=== PATIENT | female | born 1955 | race African-American/Black ===

== ENCOUNTER 2018-05-28 15:32 | Inpatient (IN) | payer MEDICARE, OTHER ==
[~2018-05-28] VITALS: Ht 160 cm; Wt 51.7 kg
[~2018-05-28 15:32] MED LIST: AMLO10TA80 PO; LOPHC2 MT; LOSA1TAB40 MT
[2018-05-28 16:00] VITALS: BP 141/71
[2018-05-28] MEDS ORDERED: MAGNESIUM/ALUMINUM HYDROXIDE/SIMETHICONE 30ML UDC PO PRN ×2 (16:45→17:30)
[2018-05-28] MEDS ORDERED: NA PHOS,M-B/NA PHOS,DI-BA ENEMA 118ML PR PRN ×2 (16:45→17:30)
[2018-05-28] MEDS ORDERED: DOCUSATE SODIUM 100MG CAPSULE PO PRN ×2 (16:45→17:30)
[2018-05-28] MEDS ORDERED: GUAIFENESIN 200MG/10ML SUGAR FREE UDC PO PRN ×2 (16:45→17:30)
[2018-05-28] MEDS ORDERED: ONDANSETRON 4MG ODT PO PRN (16:45)
[2018-05-28] MEDS ORDERED: ACETAMINOPHEN 650MG/20.3ML UDC PO PRN (16:45)
[2018-05-28] MEDS ORDERED: CLONIDINE 0.1MG TABLET PO PRN ×2 (16:45→17:30)
[2018-05-28] MEDS ORDERED: ONDANSETRON HCL 4MG/2ML VIAL IV PRN ×2 (16:45→17:30)
[2018-05-28] MEDS ORDERED: DIPHENHYDRAMINE 25MG CAPSULE PO PRN (16:45)
[2018-05-28] MEDS ORDERED: ACETAMINOPHEN 650MG SUPP PR PRN ×2 (16:45→17:30)
[2018-05-28] MEDS ORDERED: IPRATROPIUM/ALBUTEROL 0.5-3(2.5)MG/3ML NEB HHN PRN (16:45)
[2018-05-28] MEDS ORDERED: ACETAMINOPHEN 325MG TABLET PO PRN ×2 (16:45→17:30)
[2018-05-28] MEDS ORDERED: IPRATROPIUM/ALBUTEROL 0.5-3(2.5)MG/3ML NEB INH PRN (17:30)
[2018-05-28] MEDS ORDERED: ACETAMINOPHEN 650MG/20.3ML UDC GT PRN (17:30)
[2018-05-28] MEDS ORDERED: AMLODIPINE 5MG TABLET PO NR (17:30)
[2018-05-28] MEDS ORDERED: HYDROCODONE/ACETAMINOPHEN 5/325MG TABLET PO PRN ×2 (17:30)
[2018-05-28] MEDS ORDERED: DIPHENHYDRAMINE 50MG/ML VIAL IV PRN (17:30)
[2018-05-28] MEDS ORDERED: LORAZEPAM 2MG/ML CPJ IM PRN (17:45)
[2018-05-28] MEDS: ENOXAPARIN 40MG/0.4ML SYR SUBCUT SCH (18:11)
[2018-05-28 19:59] VITALS: BP_SYST 135; BP_SYST 143; BP_DIAS 52; BP_DIAS 74
[2018-05-28] MEDS: DEXT 5%/0.45% NACL KCL 20MEQ/L 1,000 ML IV SCH (20:59)
[2018-05-28] MEDS ORDERED: AMLODIPINE 5MG TABLET PO SCH (21:00)
[2018-05-28] MEDS: NITROGLYCERIN OINT 1GM/INCH UDPKT TD SCH (21:01)
[2018-05-28] MEDS: LOSARTAN POTASSIUM 25 MG TABLET PO SCH (21:01)
[2018-05-28] MEDS ORDERED: SODIUM CHLORIDE 0.9% INJ 3ML FLUSH IVF SCH ×2 (22:00)
[2018-05-28] MEDS: METOPROLOL TARTRATE 25MG TABLET PO SCH (22:20)
[2018-05-28] MEDS: SODIUM CHLORIDE 0.9% INJ 3ML FLUSH IVF SCH (22:39)
[2018-05-29] MEDS: NITROGLYCERIN OINT 1GM/INCH UDPKT TD SCH ×6 (00:43→20:14)
[2018-05-29] MEDS: SODIUM CHLORIDE 0.9% INJ 3ML FLUSH IVF SCH ×3 (05:43→21:34)
[2018-05-29] MEDS: DEXT 5%/0.45% NACL KCL 20MEQ/L 1,000 ML IV SCH ×2 (05:43→23:01)
[2018-05-29 07:20] LABS: BASOPHILS % 0.5 % (0.0-2.0); EOSINOPHILS % 1.5 % (0.0-5.0); HEMATOCRIT. 25.9 % (36.0-48.0); HEMOGLOBIN. 8.6 g/dL (12.0-16.0); LYMPHOCYTES % 13.2 % (20.0-50.0); MEAN CORPUSCULAR HEMOGLOBIN 24.4 pg (28.0-32.0); MEAN CORPUSCULAR VOLUME 73.3 fL (81.0-99.0); MEAN PLATELET VOLUME 7.8 fl (7.4-10.4); MONOCYTES % 13.3 % (2.0-8.0); NEUTROPHILS % 71.5 % (40.0-76.0); PLATELET 574 x1000/uL (130-400); RED BLOOD CELL COUNT 3.54 mill/uL (4.2-5.4); RED CELL DISTRIBUTION WIDTH 29.9 % (11.6-14.6)
[2018-05-29 07:30] VITALS: BP 150/70
[2018-05-29 08:02] LABS: CHLORIDE 97 mEq/L (98-107)
[2018-05-29 08:19] LABS: LDL CHOLESTEROL 67 mg/dL (5-100)
[2018-05-29 08:21] LABS: HDL CHOLESTEROL 33 mg/dL (40-59)
[2018-05-29] MEDS: PANTOPRAZOLE SODIUM 40 MG/VIAL IV SCH (09:16)
[2018-05-29] MEDS: AMLODIPINE 5MG TABLET PO SCH (09:16)
[2018-05-29] MEDS: LOSARTAN POTASSIUM 25 MG TABLET PO SCH ×2 (09:17→20:14)
[2018-05-29] MEDS: METOPROLOL TARTRATE 25MG TABLET PO SCH ×2 (09:17→21:22)
[2018-05-29] MEDS: NICOTINE 21MG PATCH TD SCH (09:18)
[2018-05-29] MEDS: CEFTRIAXONE 2 G in DEXTROSE 5% WATER 50 ML IV SCH (13:27)
[2018-05-29] MEDS: ENOXAPARIN 40MG/0.4ML SYR SUBCUT SCH (16:24)
[2018-05-29 20:00] VITALS: BP 142/74
[2018-05-30] MEDS: NITROGLYCERIN OINT 1GM/INCH UDPKT TD SCH ×6 (00:05→20:42)
[2018-05-30] MEDS: SODIUM CHLORIDE 0.9% INJ 3ML FLUSH IVF SCH ×3 (05:34→22:20)
[2018-05-30 08:00] VITALS: BP 135/73
[2018-05-30] MEDS: NICOTINE 21MG PATCH TD SCH (08:01)
[2018-05-30] MEDS: PANTOPRAZOLE SODIUM 40 MG/VIAL IV SCH (08:01)
[2018-05-30] MEDS: AMLODIPINE 5MG TABLET PO SCH (08:02)
[2018-05-30] MEDS: METOPROLOL TARTRATE 25MG TABLET PO SCH ×2 (08:02→20:42)
[2018-05-30] MEDS: LOSARTAN POTASSIUM 25 MG TABLET PO SCH ×2 (08:02→22:20)
[2018-05-30 10:43] VITALS: BP 130/65
[2018-05-30] MEDS: DEXT 5%/0.45% NACL KCL 20MEQ/L 1,000 ML IV SCH ×2 (11:49→22:19)
[2018-05-30] MEDS: CEFTRIAXONE 2 G in DEXTROSE 5% WATER 50 ML IV SCH (11:49)
[2018-05-30] MEDS: ENOXAPARIN 40MG/0.4ML SYR SUBCUT SCH (16:43)
[2018-05-30 20:00] VITALS: BP 138/70
[2018-05-30 21:00] VITALS: BP 138/70
[2018-05-31] MEDS: NITROGLYCERIN OINT 1GM/INCH UDPKT TD SCH ×6 (00:08→20:15)
[2018-05-31] MEDS: SODIUM CHLORIDE 0.9% INJ 3ML FLUSH IVF SCH ×3 (06:33→22:08)
[2018-05-31 08:00] VITALS: BP 137/72
[2018-05-31] MEDS: LOSARTAN POTASSIUM 25 MG TABLET PO SCH ×2 (09:01→20:15)
[2018-05-31] MEDS: PANTOPRAZOLE SODIUM 40 MG/VIAL IV SCH (09:02)
[2018-05-31] MEDS: METOPROLOL TARTRATE 25MG TABLET PO SCH ×2 (09:02→20:15)
[2018-05-31] MEDS: NICOTINE 21MG PATCH TD SCH (09:02)
[2018-05-31] MEDS: AMLODIPINE 5MG TABLET PO SCH (09:02)
[2018-05-31] MEDS: DEXT 5%/0.45% NACL KCL 20MEQ/L 1,000 ML IV SCH ×2 (09:03→22:09)
[2018-05-31] MEDS: ENOXAPARIN 40MG/0.4ML SYR SUBCUT SCH (17:00)
[2018-05-31 20:00] VITALS: BP 135/71
[2018-06-01] MEDS: NITROGLYCERIN OINT 1GM/INCH UDPKT TD SCH ×7 (03:46→23:48)
[2018-06-01] MEDS: DEXT 5%/0.45% NACL KCL 20MEQ/L 1,000 ML IV SCH ×3 (03:48→23:48)
[2018-06-01] MEDS: SODIUM CHLORIDE 0.9% INJ 3ML FLUSH IVF SCH ×3 (05:08→23:06)
[2018-06-01 08:00] VITALS: BP 134/65
[2018-06-01] MEDS: NICOTINE 21MG PATCH TD SCH (08:53)
[2018-06-01] MEDS: PANTOPRAZOLE SODIUM 40 MG/VIAL IV SCH (08:53)
[2018-06-01] MEDS: AMLODIPINE 5MG TABLET PO SCH (08:53)
[2018-06-01] MEDS: LOSARTAN POTASSIUM 25 MG TABLET PO SCH ×2 (08:54→20:33)
[2018-06-01] MEDS: METOPROLOL TARTRATE 25MG TABLET PO SCH ×2 (08:55→20:33)
[2018-06-01] MEDS: ENOXAPARIN 40MG/0.4ML SYR SUBCUT SCH (17:24)
[2018-06-01 20:00] VITALS: BP 139/60
[2018-06-02] MEDS: DEXT 5%/0.45% NACL KCL 20MEQ/L 1,000 ML IV SCH ×3 (02:21→21:46)
[2018-06-02] MEDS: NITROGLYCERIN OINT 1GM/INCH UDPKT TD SCH ×6 (03:57→23:59)
[2018-06-02] MEDS: SODIUM CHLORIDE 0.9% INJ 3ML FLUSH IVF SCH ×3 (05:15→21:48)
[2018-06-02 08:00] VITALS: BP 141/75
[2018-06-02] MEDS: NICOTINE 21MG PATCH TD SCH (09:03)
[2018-06-02] MEDS: PANTOPRAZOLE SODIUM 40 MG/VIAL IV SCH (09:03)
[2018-06-02] MEDS: LOSARTAN POTASSIUM 25 MG TABLET PO SCH ×2 (09:03→21:47)
[2018-06-02] MEDS: FERROUS SULFATE 325MG TABLET PO SCH ×2 (09:03→16:20)
[2018-06-02] MEDS: METOPROLOL TARTRATE 25MG TABLET PO SCH ×2 (09:04→23:56)
[2018-06-02] MEDS: AMLODIPINE 5MG TABLET PO SCH (09:04)
[2018-06-02] MEDS: ENOXAPARIN 40MG/0.4ML SYR SUBCUT SCH (16:30)
[2018-06-02 20:00] VITALS: BP 143/73
[2018-06-03] MEDS: NITROGLYCERIN OINT 1GM/INCH UDPKT TD SCH ×5 (04:38→20:41)
[2018-06-03] MEDS: DEXT 5%/0.45% NACL KCL 20MEQ/L 1,000 ML IV SCH (05:29)
[2018-06-03] MEDS: SODIUM CHLORIDE 0.9% INJ 3ML FLUSH IVF SCH ×3 (05:29→22:00)
[2018-06-03 07:00] VITALS: BP 142/69
[2018-06-03] MEDS: FAMOTIDINE 20MG TABLET PO SCH ×2 (08:42→20:41)
[2018-06-03] MEDS: METOPROLOL TARTRATE 25MG TABLET PO SCH ×2 (08:42→21:00)
[2018-06-03] MEDS: AMLODIPINE 5MG TABLET PO SCH (08:42)
[2018-06-03] MEDS: LOSARTAN POTASSIUM 25 MG TABLET PO SCH ×2 (08:42→22:00)
[2018-06-03] MEDS: FERROUS SULFATE 325MG TABLET PO SCH ×2 (08:42→17:00)
[2018-06-03] MEDS: NICOTINE 21MG PATCH TD SCH (08:43)
[2018-06-03 12:47] VITALS: BP 155/77
[2018-06-03 15:55] VITALS: BP 120/54
[2018-06-03] MEDS: ENOXAPARIN 40MG/0.4ML SYR SUBCUT SCH (17:01)
[2018-06-03 20:00] VITALS: BP 120/58
[2018-06-04] MEDS: NITROGLYCERIN OINT 1GM/INCH UDPKT TD SCH ×6 (00:09→21:25)
[2018-06-04] MEDS: SODIUM CHLORIDE 0.9% INJ 3ML FLUSH IVF SCH ×3 (06:00→21:25)
[2018-06-04 08:00] VITALS: BP 133/68
[2018-06-04] MEDS: NICOTINE 21MG PATCH TD SCH (08:24)
[2018-06-04] MEDS: METOPROLOL TARTRATE 25MG TABLET PO SCH ×2 (08:24→21:00)
[2018-06-04] MEDS: LOSARTAN POTASSIUM 25 MG TABLET PO SCH ×2 (08:24→21:25)
[2018-06-04] MEDS: FERROUS SULFATE 325MG TABLET PO SCH ×2 (08:24→17:10)
[2018-06-04] MEDS: FAMOTIDINE 20MG TABLET PO SCH ×2 (08:24→21:25)
[2018-06-04] MEDS: AMLODIPINE 5MG TABLET PO SCH (08:25)
[2018-06-04] MEDS: ENOXAPARIN 40MG/0.4ML SYR SUBCUT SCH (17:10)
[2018-06-04 20:00] VITALS: BP 143/67
[2018-06-05] MEDS: NITROGLYCERIN OINT 1GM/INCH UDPKT TD SCH ×3 (01:04→08:56)
[2018-06-05] MEDS: SODIUM CHLORIDE 0.9% INJ 3ML FLUSH IVF SCH ×2 (05:24→14:00)
[2018-06-05 08:00] VITALS: BP 132/66
[2018-06-05] MEDS: FERROUS SULFATE 325MG TABLET PO SCH (08:55)
[2018-06-05] MEDS: AMLODIPINE 5MG TABLET PO SCH (08:55)
[2018-06-05] MEDS: LOSARTAN POTASSIUM 25 MG TABLET PO SCH (08:55)
[2018-06-05] MEDS: NICOTINE 21MG PATCH TD SCH (08:56)
[2018-06-05] MEDS: FAMOTIDINE 20MG TABLET PO SCH (08:56)
[2018-06-05] MEDS: METOPROLOL TARTRATE 25MG TABLET PO SCH (08:56)
[2018-06-05 09:51] VITALS: BP 132/66
== END 2018-06-05 17:25 | disposition home or self-care (01) | DRG 947 ==
PROVIDERS: ADMIT Psychiatry & Neurology Neurology; ATTEND Family Medicine
DX: R53.81 Other malaise (principal); J96.00 Acute respiratory failure, unspecified whether with hypoxia or hypercapnia; J93.9 Pneumothorax, unspecified; C20 Malignant neoplasm of rectum; D62 Acute posthemorrhagic anemia; E44.0 Moderate protein-calorie malnutrition; I31.3 Pericardial effusion (noninflammatory); J98.11 Atelectasis; D50.9 Iron deficiency anemia, unspecified; F17.210 Nicotine dependence, cigarettes, uncomplicated; R00.0 Tachycardia, unspecified; F29 Unspecified psychosis not due to a substance or known physiological condition; J43.8 Other emphysema; G62.9 Polyneuropathy, unspecified; M19.90 Unspecified osteoarthritis, unspecified site; I11.9 Hypertensive heart disease without heart failure; Z85.048 Personal history of other malignant neoplasm of rectum, rectosigmoid junction, and anus; Z90.49 Acquired absence of other specified parts of digestive tract; Z71.6 Tobacco abuse counseling; Z22.322 Carrier or suspected carrier of Methicillin resistant Staphylococcus aureus; Z68.20 Body mass index [BMI] 20.0-20.9, adult
CPT/HCPCS: 36415; 80053; 80061; 82962; 85025; 93970; 97110; 97112; 97116; 97162; 97166; 97530; 97535; C9113; J0696; J1650; J7060

== ENCOUNTER 2020-05-12 11:36 | Inpatient (IN) | payer MEDICARE, OTHER, MEDICAID ==
[~2020-05-12] VITALS: Ht 162.6 cm; Wt 60.8 kg
[2020-05-12] MEDS ORDERED: KETOROLAC 30MG/ML VIAL IV STA (12:15)
[2020-05-12] MEDS ORDERED: ONDANSETRON HCL 4MG/2ML INJ IV STA ×2 (12:15→14:36)
[2020-05-12] MEDS ORDERED: MAGNESIUM/ALUMINUM HYDROXIDE/SIMETHICONE 30ML UDC PO STA (12:15)
[2020-05-12] MEDS ORDERED: SODIUM CHLORIDE 0.9% 1,000 ML IV ONE (12:15)
[2020-05-12 13:34] LABS: HEMATOCRIT. 30.2 % (36.0-48.0); HEMOGLOBIN. 9.9 g/dL (12.0-16.0); MEAN CORPUSCULAR HEMOGLOBIN 28.4 pg (28.0-32.0); MEAN CORPUSCULAR VOLUME 86.9 fL (81.0-99.0); MEAN PLATELET VOLUME 7.8 fl (7.4-10.4); PLATELET 514 x1000/uL (130-400); RED BLOOD CELL COUNT 3.47 mill/uL (4.2-5.4); RED CELL DISTRIBUTION WIDTH 14.1 % (11.6-14.6)
[2020-05-12 13:41] LABS: CHLORIDE 106 mEq/L (98-107)
[2020-05-12 13:44] LABS: PROTHROMBIN TIME 10.8 sec (9.6-11.0)
[2020-05-12 14:08] LABS: PLATELET ESTIMATE INCREASED
[2020-05-12] MEDS ORDERED: MORPHINE SULFATE 4 MG/ML CPJ (NOT FOR IM USE) IV STA (14:36)
[2020-05-12 18:28] VITALS: BP 120/75
[2020-05-12 20:00] VITALS: BP 160/77
[2020-05-12] MEDS ORDERED: MORPHINE SULFATE 2 MG/ML CPJ (NOT FOR IM USE) IV PRN (20:15)
[2020-05-12] MEDS ORDERED: ONDANSETRON HCL 4MG/2ML INJ IV PRN (20:15)
[2020-05-12] MEDS: DEXT 5%/0.9% NACL 1,000 ML IV SCH (22:40)
[2020-05-12] MEDS: ENALAPRIL 1.25 MG in DEXTROSE 5% WATER 49 ML IV PRN (23:14)
[2020-05-13] VITALS: BP 130/61
[2020-05-13] MEDS ORDERED: FURO40TA5 PO (01:19)
[2020-05-13] MEDS ORDERED: LISI-186 PO (01:19)
[2020-05-13 04:00] VITALS: BP 137/60
[2020-05-13 05:45] LABS: BASOPHILS % 0.6 % (0.0-2.0); CHLORIDE 110 mEq/L (98-107); EOSINOPHILS % 1.8 % (0.0-5.0); HEMATOCRIT. 23.8 % (36.0-48.0); HEMOGLOBIN. 7.7 g/dL (12.0-16.0); MEAN CORPUSCULAR HEMOGLOBIN 28.2 pg (28.0-32.0); MEAN CORPUSCULAR VOLUME 87.1 fL (81.0-99.0); MEAN PLATELET VOLUME 7.9 fl (7.4-10.4); NEUTROPHILS % 77.6 % (40.0-76.0); PLATELET 456 x1000/uL (130-400); RED BLOOD CELL COUNT 2.74 mill/uL (4.2-5.4); RED CELL DISTRIBUTION WIDTH 14.2 % (11.6-14.6)
[2020-05-13] MEDS: DEXT 5%/0.9% NACL 1,000 ML IV SCH ×2 (07:02→18:02)
[2020-05-13 08:00] VITALS: BP 151/68
[2020-05-13] MEDS ORDERED: DIATR MEGLU/DIATRIZOATE SOLN 120ML ONE (11:31)
[2020-05-13 12:00] VITALS: BP 184/78
[2020-05-13] MEDS: ENALAPRIL 1.25 MG in DEXTROSE 5% WATER 49 ML IV PRN (14:07)
[2020-05-13 16:00] VITALS: BP 175/79
[2020-05-13 20:00] VITALS: BP 113/77
[2020-05-14] VITALS: BP 152/72
[2020-05-14 04:00] VITALS: BP 161/84
[2020-05-14] MEDS: DEXT 5%/0.9% NACL 1,000 ML IV SCH ×2 (04:27→14:03)
[2020-05-14] MEDS: ENALAPRIL 1.25 MG in DEXTROSE 5% WATER 49 ML IV PRN ×3 (05:33→19:43)
[2020-05-14 08:00] VITALS: BP 167/77
[2020-05-14 12:00] VITALS: BP 152/68
[2020-05-14 16:00] VITALS: BP 144/67
[2020-05-14 20:00] VITALS: BP 180/84
[2020-05-14] MEDS: FUROSEMIDE 40MG TABLET PO SCH (22:10)
[2020-05-14] MEDS: LISINOPRIL 5MG TABLET PO SCH (22:10)
[2020-05-15] VITALS: BP 173/84
[2020-05-15] MEDS: DEXT 5%/0.9% NACL 1,000 ML IV SCH ×2 (00:32→10:30)
[2020-05-15] MEDS ORDERED: CLONIDINE 0.1MG TABLET PO PRN (00:45)
[2020-05-15 04:00] VITALS: BP 147/81
[2020-05-15 08:00] VITALS: BP 142/73
[2020-05-15] MEDS: FUROSEMIDE 40MG TABLET PO SCH (08:57)
[2020-05-15] MEDS: LISINOPRIL 5MG TABLET PO SCH (08:57)
[2020-05-15 10:34] LABS: BASOPHILS % 0.3 % (0.0-2.0); EOSINOPHILS % 1.6 % (0.0-5.0); HEMATOCRIT. 26.5 % (36.0-48.0); HEMOGLOBIN. 8.7 g/dL (12.0-16.0); LYMPHOCYTES % 8.8 % (20.0-50.0); MEAN CORPUSCULAR HEMOGLOBIN 28.3 pg (28.0-32.0); MEAN CORPUSCULAR VOLUME 86.4 fL (81.0-99.0); MEAN PLATELET VOLUME 7.6 fl (7.4-10.4); NEUTROPHILS % 81.3 % (40.0-76.0); PLATELET 494 x1000/uL (130-400); RED BLOOD CELL COUNT 3.07 mill/uL (4.2-5.4); RED CELL DISTRIBUTION WIDTH 14.2 % (11.6-14.6)
[2020-05-15 10:45] LABS: CHLORIDE 99 mEq/L (98-107)
[2020-05-15 12:00] VITALS: BP 134/70
[2020-05-15 13:55] VITALS: BP 134/70
[2020-05-15 16:00] VITALS: BP 140/77
== END 2020-05-15 16:13 | disposition home or self-care (01) | DRG 389 ==
LOC: ER 11:36 → 6EST 15:18 → EDBEDREQ 15:24 → EDBEDREQTM 15:24 → ENRESERV 15:31 → 6EST 17:24
PROVIDERS: ADMIT Family Medicine; ATTEND Family Medicine
DX: K56.609 Unspecified intestinal obstruction, unspecified as to partial versus complete obstruction (principal); E44.0 Moderate protein-calorie malnutrition; I10 Essential (primary) hypertension; D64.9 Anemia, unspecified; I25.10 Atherosclerotic heart disease of native coronary artery without angina pectoris; D63.8 Anemia in other chronic diseases classified elsewhere; Z85.038 Personal history of other malignant neoplasm of large intestine; Z79.84 Long term (current) use of oral hypoglycemic drugs; Z79.899 Other long term (current) drug therapy; Z68.23 Body mass index [BMI] 23.0-23.9, adult
CPT/HCPCS: 36415; 74018; 74176; 74249; 80053; 85025; 93005; 99285; J1885; J2270; J2405; J3490; J7030; J7042; J7060; Q9963

== ENCOUNTER 2020-08-25 07:37 | Emergency (ER) | payer MEDICARE, OTHER ==
[~2020-08-25] VITALS: Ht 165.1 cm; Wt 66.0 kg
[~2020-08-25 07:37] MED LIST changes: -AMLO10TA80 PO; +AMLO5TAB88 PO; -LOPHC2 MT; -LOSA1TAB40 MT; +METO25TA6 PO; +PANT40TA4 MT
[2020-08-25] MEDS ORDERED: VISCOUS LIDOCAINE 2% 15 ML UDC PO STA (08:22)
[2020-08-25] MEDS ORDERED: ONDANSETRON HCL 4MG/2ML INJ IV STA (08:22)
[2020-08-25] MEDS ORDERED: FAMOTIDINE 20MG/2ML VIAL IV STA (08:22)
[2020-08-25] MEDS ORDERED: MAGNESIUM/ALUMINUM HYDROXIDE/SIMETHICONE 30ML UDC PO STA (08:22)
[2020-08-25 08:54] LABS: HEMATOCRIT. 34.8 % (36.0-48.0); HEMOGLOBIN. 11.2 g/dL (12.0-16.0); MEAN CORPUSCULAR VOLUME 77.9 fL (81.0-99.0); MEAN PLATELET VOLUME 7.8 fl (7.4-10.4); PLATELET 680 x1000/uL (130-400); RED BLOOD CELL COUNT 4.46 mill/uL (4.2-5.4); RED CELL DISTRIBUTION WIDTH 25.2 % (11.6-14.6)
[2020-08-25 09:08] LABS: CHLORIDE 102 mEq/L (98-107)
[2020-08-25] MEDS ORDERED: MORPHINE SULFATE 4 MG/ML CPJ (NOT FOR IM USE) IV ONE (10:45)
[2020-08-25] MEDS ORDERED: ONDANSETRON HCL 4MG/2ML INJ IV ONE (10:45)
[2020-08-25 11:24] LABS: CLARITY URINE CLEAR (CLEAR); COLOR URINE YELLOW (YELLOW); KETONES URINE 2+ (NEGATIVE); LEUKOCYTE ESTERASE URINE 1+ (NEGATIVE); NITRITE URINE NEGATIVE (NEGATIVE); OCCULT BLOOD URINE NEGATIVE (NEGATIVE); PH URINE 5.5 (4.5-8.0); PROTEIN URINE NEGATIVE (NEGATIVE); SPECIFIC GRAVITY URINE 1.013 (1.005-1.030); UROBILINOGEN URINE 0.2 E.U./dL (0.2-1.0)
[2020-08-25] MEDS ORDERED: SODIUM CHLORIDE 0.9% 500 ML IV ONE (12:00)
[2020-08-25] MEDS ORDERED: METOPROLOL TARTRATE 25MG TABLET PO ONE (12:00)
[2020-08-25] MEDS ORDERED: POTASSIUM CHLORIDE 20MEQ TABLET SR PO ONE (12:00)
[2020-08-25 12:18] LABS: PLATELET ESTIMATE INCREASED
[2020-08-25 12:40] VITALS: BP 163/88
== END 2020-08-25 12:44 | disposition home or self-care (01) ==
LOC: ER 07:37
DX: R10.13 Epigastric pain (principal); E87.6 Hypokalemia; J44.9 Chronic obstructive pulmonary disease, unspecified; I11.9 Hypertensive heart disease without heart failure; Z85.9 Personal history of malignant neoplasm, unspecified
CPT/HCPCS: 36415; 80053; 81003; 83690; 84484; 85025; 93005; 96374; 96375; 96376; 99285; J2270; J2405; J3490; J7040

== ENCOUNTER 2020-10-01 08:18 | Inpatient (IN) | payer MEDICARE, OTHER ==
[~2020-10-01] VITALS: Ht 160 cm; Wt 52.2 kg
[~2020-10-01 08:18] MED LIST changes: -PANT40TA4 MT; +PANT40TA51 MT
[2020-10-01] MEDS ORDERED: ACETAMINOPHEN 325MG TABLET PO STA (08:43)
[2020-10-01] MEDS ORDERED: SODIUM CHLORIDE 0.9% 1000ML BAG (SEPSIS BOLUS) IV ONE (08:45)
[2020-10-01] MEDS ORDERED: CEFTRIAXONE 1 G PREMIX 50 ML IV ONE (08:45)
[2020-10-01 11:11] LABS: HEMATOCRIT. 30.1 % (36.0-48.0); HEMOGLOBIN. 9.5 g/dL (12.0-16.0); MEAN CORPUSCULAR HEMOGLOBIN 26.7 pg (28.0-32.0); MEAN CORPUSCULAR VOLUME 84.3 fL (81.0-99.0); MEAN PLATELET VOLUME 7.3 fl (7.4-10.4); PLATELET 815 x1000/uL (130-400); RED BLOOD CELL COUNT 3.57 mill/uL (4.2-5.4); RED CELL DISTRIBUTION WIDTH 22.8 % (11.6-14.6)
[2020-10-01 11:16] LABS: CHLORIDE 103 mEq/L (98-107); INR 1.1; PROTHROMBIN TIME 11.3 sec (9.6-11.0)
[2020-10-01 11:18] LABS: COLOR URINE DK YELLOW (YELLOW); KETONES URINE 3+ (NEGATIVE); LEUKOCYTE ESTERASE URINE 3+ (NEGATIVE); NITRITE URINE NEGATIVE (NEGATIVE); OCCULT BLOOD URINE NEGATIVE (NEGATIVE); PROTEIN URINE TRACE (NEGATIVE); SPECIFIC GRAVITY URINE 1.016 (1.005-1.030); UROBILINOGEN URINE 0.2 E.U./dL (0.2-1.0)
[2020-10-01 11:21] LABS: CLARITY URINE CLOUDY (CLEAR)
[2020-10-01 11:52] LABS: PLATELET ESTIMATE INCREASED
[2020-10-01] MEDS ORDERED: IOHEXOL-300 100 ML BOTTLE ONE (12:50)
[2020-10-01] MEDS ORDERED: CLONIDINE 0.1MG TABLET PO PRN (17:00)
[2020-10-01] MEDS ORDERED: ACETAMINOPHEN 650MG SUPP PR PRN ×2 (17:00)
[2020-10-01] MEDS ORDERED: DIPHENHYDRAMINE 50MG/ML VIAL IV PRN (17:00)
[2020-10-01] MEDS ORDERED: PANTOPRAZOLE 40MG DR TABLET PO SCH (17:00)
[2020-10-01] MEDS ORDERED: GUAIFENESIN 200MG/10ML SUGAR FREE UDC PO PRN (17:00)
[2020-10-01] MEDS ORDERED: MAGNESIUM/ALUMINUM HYDROXIDE/SIMETHICONE 30ML UDC PO PRN (17:00)
[2020-10-01] MEDS ORDERED: LORAZEPAM 0.5MG TABLET PO PRN (17:00)
[2020-10-01] MEDS ORDERED: LEVOFLOXACIN 500MG PREMIX 100 ML IV SCH (18:00)
[2020-10-01] MEDS ORDERED: METRONIDAZOLE 500 MG PREMIX 100 ML IV SCH (19:00)
[2020-10-01 20:00] VITALS: BP 139/89
[2020-10-01] MEDS: LACTULOSE 20G/30ML UDC PO SCH (22:07)
[2020-10-01] MEDS: METOPROLOL TARTRATE 25MG TABLET PO SCH (22:07)
[2020-10-01 22:34] VITALS: BP 139/89
[2020-10-01] MEDS: ONDANSETRON HCL 4MG/2ML INJ IV PRN (22:56)
[2020-10-01] MEDS: METRONIDAZOLE 500 MG PREMIX 100 ML IV SCH (23:26)
[2020-10-02] VITALS: BP_SYST 104; BP_SYST 153; BP_DIAS 57; BP_DIAS 91
[2020-10-02] MEDS ORDERED: LEVOFLOXACIN 500MG PREMIX 100 ML IV SCH
[2020-10-02 04:00] VITALS: BP 130/79
[2020-10-02] MEDS: LACTULOSE 20G/30ML UDC PO SCH ×3 (06:00→22:59)
[2020-10-02 06:35] LABS: HAPTOGLOBIN 261 mg/dL (30-200)
[2020-10-02] MEDS: METRONIDAZOLE 500 MG PREMIX 100 ML IV SCH ×3 (07:31→22:59)
[2020-10-02 08:00] VITALS: BP 154/88
[2020-10-02] MEDS: ONDANSETRON HCL 4MG/2ML INJ IV PRN ×2 (08:27→15:49)
[2020-10-02] MEDS: AMLODIPINE 5MG TABLET PO SCH (08:28)
[2020-10-02] MEDS: METOPROLOL TARTRATE 25MG TABLET PO SCH ×2 (08:28→21:27)
[2020-10-02 12:00] VITALS: BP 134/75
[2020-10-02] MEDS: METOCLOPRAMIDE HCL 10MG/2ML VIAL IV SCH ×3 (12:35→23:00)
[2020-10-02 13:05] LABS: HEMATOCRIT. 29.5 % (36.0-48.0); HEMOGLOBIN. 9.4 g/dL (12.0-16.0); MEAN CORPUSCULAR HEMOGLOBIN 26.4 pg (28.0-32.0); MEAN CORPUSCULAR VOLUME 83.1 fL (81.0-99.0); MEAN PLATELET VOLUME 7.2 fl (7.4-10.4); PLATELET 801 x1000/uL (130-400); RED BLOOD CELL COUNT 3.55 mill/uL (4.2-5.4); RED CELL DISTRIBUTION WIDTH 22.3 % (11.6-14.6)
[2020-10-02 13:33] LABS: CHLORIDE 103 mEq/L (98-107)
[2020-10-02 14:34] LABS: PLATELET ESTIMATE MARKEDLY INCREASED
[2020-10-02 16:00] VITALS: BP 142/71
[2020-10-02] MEDS: NA PHOS,M-B/NA PHOS,DI-BA ENEMA 118ML PR PRN (16:05)
[2020-10-02] MEDS: ENOXAPARIN 40MG/0.4ML SYR SUBCUT SCH (18:22)
[2020-10-02 20:00] VITALS: BP 126/60
[2020-10-02] MEDS: LEVOFLOXACIN 500MG PREMIX 100 ML IV SCH (21:28)
[2020-10-03] VITALS: BP 104/57
[2020-10-03 04:00] VITALS: BP 121/67
[2020-10-03] MEDS: METRONIDAZOLE 500 MG PREMIX 100 ML IV SCH ×3 (06:27→21:37)
[2020-10-03] MEDS: LACTULOSE 20G/30ML UDC PO SCH (06:27)
[2020-10-03] MEDS: METOCLOPRAMIDE HCL 10MG/2ML VIAL IV SCH ×2 (06:27→12:00)
[2020-10-03 08:00] VITALS: BP 136/70
[2020-10-03] MEDS: AMLODIPINE 5MG TABLET PO SCH (09:25)
[2020-10-03] MEDS: METOPROLOL TARTRATE 25MG TABLET PO SCH ×2 (09:27→21:36)
[2020-10-03] MEDS: FAMOTIDINE 20MG TABLET PO SCH (09:28)
[2020-10-03] MEDS: NA PHOS,M-B/NA PHOS,DI-BA ENEMA 118ML PR PRN (14:55)
[2020-10-03] MEDS: ENOXAPARIN 40MG/0.4ML SYR SUBCUT SCH (17:15)
[2020-10-03 19:41] LABS: BASOPHILS % 0.2 % (0.0-2.0); EOSINOPHILS % 0.1 % (0.0-5.0); HEMATOCRIT. 24.7 % (36.0-48.0); HEMOGLOBIN. 8.1 g/dL (12.0-16.0); LYMPHOCYTES % 8.1 % (20.0-50.0); MEAN CORPUSCULAR HEMOGLOBIN 26.7 pg (28.0-32.0); MEAN CORPUSCULAR VOLUME 81.5 fL (81.0-99.0); MONOCYTES % 7.5 % (2.0-8.0); NEUTROPHILS % 84.1 % (40.0-76.0); PLATELET 718 x1000/uL (130-400); RED BLOOD CELL COUNT 3.03 mill/uL (4.2-5.4); RED CELL DISTRIBUTION WIDTH 21.7 % (11.6-14.6)
[2020-10-03 19:50] LABS: CHLORIDE 105 mEq/L (98-107)
[2020-10-03] MEDS: LEVOFLOXACIN 500MG PREMIX 100 ML IV SCH (21:30)
[2020-10-04 08:00] VITALS: BP 141/72
[2020-10-04] MEDS: FAMOTIDINE 20MG TABLET PO SCH (08:41)
[2020-10-04] MEDS: AMLODIPINE 5MG TABLET PO SCH (08:41)
[2020-10-04] MEDS: METOPROLOL TARTRATE 25MG TABLET PO SCH ×2 (08:42→20:42)
[2020-10-04 12:00] VITALS: BP 142/77
[2020-10-04] MEDS: METRONIDAZOLE 500 MG PREMIX 100 ML IV SCH ×2 (13:59→22:14)
[2020-10-04] MEDS: MORPHINE SULFATE 2 MG/ML CPJ (NOT FOR IM USE) IV PRN (15:45)
[2020-10-04 16:00] VITALS: BP 142/76
[2020-10-04] MEDS: ENOXAPARIN 40MG/0.4ML SYR SUBCUT SCH (18:34)
[2020-10-04 20:00] VITALS: BP 123/78
[2020-10-04 20:15] LABS: BASOPHILS % 1.3 % (0.0-2.0); EOSINOPHILS % 0.5 % (0.0-5.0); HEMOGLOBIN. 7.8 g/dL (12.0-16.0); LYMPHOCYTES % 10.7 % (20.0-50.0); MEAN CORPUSCULAR HEMOGLOBIN 26.8 pg (28.0-32.0); MEAN CORPUSCULAR VOLUME 82.4 fL (81.0-99.0); MEAN PLATELET VOLUME 7.3 fl (7.4-10.4); MONOCYTES % 8.4 % (2.0-8.0); NEUTROPHILS % 79.1 % (40.0-76.0); PLATELET 648 x1000/uL (130-400); RED BLOOD CELL COUNT 2.91 mill/uL (4.2-5.4); RED CELL DISTRIBUTION WIDTH 21.4 % (11.6-14.6)
[2020-10-04 20:23] LABS: CHLORIDE 107 mEq/L (98-107)
[2020-10-04] MEDS: LEVOFLOXACIN 250MG PREMIX 50 ML IV SCH (20:42)
[2020-10-05] VITALS: BP 139/76
[2020-10-05 04:00] VITALS: BP 129/73
[2020-10-05] MEDS: METRONIDAZOLE 500 MG PREMIX 100 ML IV SCH ×3 (05:38→22:00)
[2020-10-05 08:00] VITALS: BP 121/65
[2020-10-05] MEDS: AMLODIPINE 5MG TABLET PO SCH (09:16)
[2020-10-05] MEDS: FAMOTIDINE 20MG TABLET PO SCH (09:16)
[2020-10-05] MEDS: METOPROLOL TARTRATE 25MG TABLET PO SCH ×2 (09:16→21:59)
[2020-10-05] MEDS ORDERED: DIATR MEGLU/DIATRIZOATE SOLN 120ML ONE (11:33)
[2020-10-05] MEDS: ONDANSETRON HCL 4MG/2ML INJ IV PRN (14:57)
[2020-10-05] MEDS: MORPHINE SULFATE 2 MG/ML CPJ (NOT FOR IM USE) IV PRN (15:15)
[2020-10-05 16:00] VITALS: BP 147/85
[2020-10-05] MEDS: ENOXAPARIN 40MG/0.4ML SYR SUBCUT SCH (17:41)
[2020-10-05 20:00] VITALS: BP 162/88
[2020-10-05] MEDS: LEVOFLOXACIN 250MG PREMIX 50 ML IV SCH (21:59)
[2020-10-05] MEDS: LACTULOSE 20G/30ML UDC PO SCH (22:00)
[2020-10-06] VITALS: BP 145/79
[2020-10-06 04:00] VITALS: BP 137/76
[2020-10-06] MEDS: LACTULOSE 20G/30ML UDC PO SCH (06:00)
[2020-10-06] MEDS: METRONIDAZOLE 500 MG PREMIX 100 ML IV SCH (06:11)
[2020-10-06 08:00] VITALS: BP 151/79
[2020-10-06] MEDS: AMLODIPINE 5MG TABLET PO SCH (09:04)
[2020-10-06] MEDS: METOPROLOL TARTRATE 25MG TABLET PO SCH (09:04)
[2020-10-06] MEDS: FAMOTIDINE 20MG TABLET PO SCH (09:04)
[2020-10-06 11:22] VITALS: BP 151/79
[2020-10-06 12:00] VITALS: BP 144/78
== END 2020-10-06 13:28 | disposition home or self-care (01) | DRG 872 ==
LOC: ER 08:18 → 6EST 15:46 → ENRESERV 18:12 → ER 18:33
PROVIDERS: ADMIT Family Medicine; ATTEND Family Medicine
DX: A41.9 Sepsis, unspecified organism (principal); K56.600 Partial intestinal obstruction, unspecified as to cause; N39.0 Urinary tract infection, site not specified; K56.7 Ileus, unspecified; E44.0 Moderate protein-calorie malnutrition; D50.9 Iron deficiency anemia, unspecified; I10 Essential (primary) hypertension; J44.9 Chronic obstructive pulmonary disease, unspecified; K29.70 Gastritis, unspecified, without bleeding; K44.9 Diaphragmatic hernia without obstruction or gangrene; K64.8 Other hemorrhoids; K76.0 Fatty (change of) liver, not elsewhere classified; E11.9 Type 2 diabetes mellitus without complications; I11.0 Hypertensive heart disease with heart failure; I50.9 Heart failure, unspecified; K59.00 Constipation, unspecified; D72.829 Elevated white blood cell count, unspecified; K21.9 Gastro-esophageal reflux disease without esophagitis; Z85.048 Personal history of other malignant neoplasm of rectum, rectosigmoid junction, and anus; Z85.038 Personal history of other malignant neoplasm of large intestine; Z79.899 Other long term (current) drug therapy; Z68.20 Body mass index [BMI] 20.0-20.9, adult
CPT/HCPCS: 36415; 71045; 74018; 74177; 74250; 80053; 81003; 82378; 83010; 83605; 83615; 84145; 84484; 85025; 86140; 93005; 96365; 97162; 97535; 99285; J0696; J1650; J1956; J2270; J2405; J2765; J3490; J7030; J7040; Q9963; Q9967